=== PATIENT | female | born 1985 | race Caucasian/White ===

== ENCOUNTER 2020-10-11 13:50 | Inpatient (IN) ==
[2020-10-11] MEDS ORDERED: Naloxone 0.4 MG/ML INJ IVP PRN (14:55)
[2020-10-11] MEDS ORDERED: Famotidine 20 MG/2 ML VIAL IVP PRN (14:55)
[2020-10-11] MEDS ORDERED: Azithromycin 500 MG in 0.9 % Sodium Chloride 250 ML IVPB PRN (14:55)
[2020-10-11] MEDS ORDERED: Lidocaine 1% 20 ML MDV INFILT PRN (14:55)
[2020-10-11] MEDS ORDERED: Metoclopramide 10 MG/2 ML VIAL IVP PRN (14:55)
[2020-10-11] MEDS ORDERED: EPHEDrine 50 MG/ML VIAL IVP PRN (15:09)
[2020-10-11 15:35] LABS: Amphetamine Screen,Urine Negative ng/mL (Cutoff=1000); Barbiturate Screen,Urine Negative ng/mL (Cutoff=200); Benzodiazepines Screen,Urine Negative ng/mL (Cutoff=200); Cannabinoid Screen,Urine Negative ng/mL (Cutoff = 50); Cocaine Screen,Urine Negative ng/mL (Cutoff= 300); Opiate Screen,Urine Negative ng/mL (Cutoff=300); Phencyclidine Screen,Urine Negative ng/mL (Cutoff=25)
[2020-10-11 15:38] LABS: Basophils % 0.2 %; Eosinophils % 0.3 %; Hematocrit 40.7 % (35.3-44.9); Hemoglobin 13.8 g/dL (11.5-15.4); Immature Granulocytes % 0.8 % (0-4); Lymphocytes # 1.6 K/mcL (0.6-4.6); Lymphocytes % 13.2 %; Mean Corpuscular HGB Conc 33.9 g/dL (31.6-35.5); Mean Corpuscular Hemoglobin 30.5 pg (28.0-33.3); Mean Platelet Volume 12.2 fL (9.4-12.4); Monocytes # 0.5 K/mcL (0.0-1.3); Monocytes % 4.6 %; Neutrophils # 9.5 K/mcL (1.6-8.9); Platelet Count 168 K/mcL (140-400); Red Blood Count 4.52 M/mcL (3.82-4.97); Segmented Neutrophils % 80.9 %; White Blood Count 11.8 K/mcL (4.3-11.1)
[2020-10-11] MEDS ORDERED: miSOPROStoL 25 MCG TABLET PO PRN (17:40)
[2020-10-11] MEDS: Ringers Solution, Lactated 1,000 ML IVC SCH (18:11)
[2020-10-11 18:37] LABS: Influenza A PCR Negative (Negative); Influenza B PCR Negative (Negative); Resp. Syncytial Virus PCR Negative (Negative)
[2020-10-11 18:39] LABS: SARS-CoV-2 by PCR (In House) Negative (Negative)
[2020-10-11] MEDS: *HR* Nalbuphine 10 MG/ML AMPUL IV PRN (23:28)
[2020-10-11] MEDS: Ondansetron 4 MG/2 ML VIAL IVP PRN (23:29)
[2020-10-12] MEDS: Oxytocin 20 units/ LR 1000 mL 20 UNIT/1,000 ML BAG IVC SCH ×2 (01:09→18:19)
[2020-10-12] MEDS ORDERED: *HR* FentaNYL (PF) 100 MCG/2 ML VIAL EP ONE (10:17)
[2020-10-12] MEDS ORDERED: EPHEDrine 50 MG/ML VIAL IVP PRN (10:17)
[2020-10-12] MEDS ORDERED: Ropivacaine/PF 0.2% 20 ML VIAL EP ONE (10:17)
[2020-10-12] MEDS ORDERED: *HR* FentaNYL (PF) 100 MCG/2 ML VIAL ONE ×4 (10:23→19:15)
[2020-10-12] MEDS ORDERED: Ropivacaine/PF 0.2% 20 ML VIAL ONE (10:24)
[2020-10-12] MEDS ORDERED: Epidural Premix (fent/bupiv) 110 ML EP SCH (10:30)
[2020-10-12] MEDS: Ringers Solution, Lactated 1,000 ML IVC SCH ×3 (11:00→14:28)
[2020-10-12] MEDS: *HR* Nalbuphine 10 MG/ML AMPUL IV PRN (11:01)
[2020-10-12] MEDS: Epidural Premix (fent/bupiv) 110 ML EP SCH ×2 (11:01→15:27)
[2020-10-12] MEDS: Ondansetron 4 MG/2 ML VIAL IVP PRN (12:25)
[2020-10-12] MEDS ORDERED: Lanolin 7 G OINT...G. TP PRN (22:35)
[2020-10-12] MEDS: Ibuprofen 600 MG TABLET PO PRN (22:50)
[2020-10-12] MEDS: Benzocaine/Menthol 56 GM AEROSOL SPRAY TP PRN (22:55)
[2020-10-13] MEDS: Acetaminophen 325 MG TABLET PO PRN ×4 (00:04→20:37)
[2020-10-13] MEDS: Ibuprofen 600 MG TABLET PO PRN ×3 (05:14→20:37)
[2020-10-13 07:32] LABS: Basophils % 0.2 %; Eosinophils # 0.1 K/mcL (0.0-0.6); Eosinophils % 0.3 %; Immature Granulocytes % 0.7 % (0-4); Lymphocytes # 1.8 K/mcL (0.6-4.6); Lymphocytes % 11.3 %; Mean Corpuscular HGB Conc 33.1 g/dL (31.6-35.5); Mean Corpuscular Hemoglobin 30.5 pg (28.0-33.3); Monocytes # 0.7 K/mcL (0.0-1.3); Monocytes % 4.1 %; Neutrophils # 13.5 K/mcL (1.6-8.9); Platelet Count 136 K/mcL (140-400); Red Blood Count 3.48 M/mcL (3.82-4.97); Red Cell Distribution Width 14.1 % (11.5-14.5); Segmented Neutrophils % 83.4 %; White Blood Count 16.2 K/mcL (4.3-11.1)
[2020-10-13 07:35] LABS: Hemoglobin 10.6 g/dL (11.5-15.4)
[2020-10-13] MEDS: Prenatal Vit/FA 1 EACH TABLET PO SCH (08:00)
[2020-10-13] MEDS: Oxytocin 20 units/ LR 1000 mL 20 UNIT/1,000 ML BAG IVC SCH (08:03)
[2020-10-13] MEDS: Benzocaine/Menthol 56 GM AEROSOL SPRAY TP PRN (20:37)
[2020-10-13 23:11] VITALS: O2SAT 97
[2020-10-14 08:08] VITALS: BP 120/81; PULSE 83; TEMP 98.1
[2020-10-14] MEDS: Prenatal Vit/FA 1 EACH TABLET PO SCH (08:59)
[2020-10-14] MEDS: Ibuprofen 600 MG TABLET PO PRN (08:59)
[2020-10-14] MEDS ORDERED: *HR* HYDROcodone/Acet 5/325 mg TABLET PO PRN (10:15)
== END 2020-10-14 10:43 | disposition home or self-care (01) | DRG 806 ==
LOC: 1NENULAB 13:50 → 1NENUOBS 10-12 22:29
PROVIDERS: ADMIT Obstetrics & Gynecology; ATTEND Obstetrics & Gynecology